=== PATIENT | female | born 1985 | race Caucasian/White ===

== ENCOUNTER 2022-12-19 18:08 | Emergency (ER) | payer OTHER, SELFPAY ==
--- NOTE | 2022-12-19 18:56 | ED.URI ---
HPI - URI/Sore Throat General Chief Complaint: Upper Respiratory Symptoms <MARGOT Victoria - Last Filed: 12/19/22 20:15> Stated Complaint: glands swollen, trouble swallowing <MARGOT Victoria - Last Filed: 12/19/22 20:15> Time Seen by Provider: 12/19/22 19:06 <MARGOT Victoria - Last Filed: 12/19/22 20:15> Source: patient <Davy Muñoz MD - Last Filed: 12/19/22 21:17> Mode of arrival: ambulatory <Davy Muñoz MD - Last Filed: 12/19/22 21:17> Limitations: no limitations <Davy Muñoz MD - Last Filed: 12/19/22 21:17> History of Present Illness HPI Narrative: 37 yo F w/no sig PMHx c/o fatigue, sore throat, rhinorrhea/congestion, cough, chest discomfort when coughing x2 days. tested for COVID at home, negative x2. No fever no chills unable to swallow any solids drinking p.o. fluids no shortness of breath no cough no other family member sick <Davy Muñoz MD - Last Filed: 12/19/22 21:17> Related Data Home Medications: Previous Rx's Medication Instructions Recorded cefuroxime axetil 500 mg tablet 500 mg PO BID #20 tabs 12/19/22 <MARGOT Victoria - Last Filed: 12/19/22 20:15> Allergies/Adverse Reactions: Allergies Allergy/AdvReac Type Severity Reaction Status Date / Time Erythromycin Allergy Unknown anaphylaxis Uncoded 12/19/22 18:57 MYOCINS Allergy Unknown ANAPHYLAXIS Uncoded 12/19/22 18:57 <MARGOT Victoria - Last Filed: 12/19/22 20:15> Review of Systems Review of Systems: Yes all other systems are reviewed and are negative <Davy Muñoz MD - Last Filed: 12/19/22 21:17> [facility] Social History Social History: Social History Advance Directives: No Advance Directives Information Provided: No <MARGOT Victoria - Last Filed: 12/19/22 20:15> Physical Exam Vital Signs: Vital Signs: Last Vital Signs Temp 97.6 F 12/19/22 18:57 Pulse 74 12/19/22 18:57 Resp 18 12/19/22 18:57 BP 148/88 H 12/19/22 18:57 Pulse Ox 98 12/19/22 18:57 O2 Del Method 12/19/22 18:57 BMI result Body Mass Index 36.0 <MARGOT Victoria - Last Filed: 12/19/22 20:15> Vital Signs: Last Vital Signs Temp 97.6 F 12/19/22 18:57 Pulse 74 12/19/22 18:57 Resp 18 12/19/22 18:57 BP 148/88 H 12/19/22 18:57 Pulse Ox 98 12/19/22 18:57 O2 Del Method 12/19/22 18:57 BMI result Body Mass Index 36.0 <Davy Muñoz MD - Last Filed: 12/19/22 21:17> Appearance: Alert. Oriented X3. No acute distress. ENT: Pharynx erythematous enlarged tonsils with exudate Neck: Normal inspection. Neck supple. CVS: Normal heart rate and rhythm. Pulses normal. Respiratory: No respiratory distress. Equal air entry bilateral, no wheezing/rales/rhonchi Abdomen: Soft and nontender. Bowel sounds are present, Skin: Skin warm and dry. Normal skin color. Normal skin turgor. Extremities: No lower extremity edema. No calf tenderness Neuro: Oriented X 3. <Davy Muñoz MD - Last Filed: 12/19/22 21:17> Course Course Course Narrative: RME--37 yo F w/no sig PMHx c/o fatigue, sore throat, rhinorrhea/congestion, cough, chest discomfort when coughing x2 days. tested for COVID at home, negative x2. +muffled voice with bilateral significant tonsillar swelling and exudates. No evidence of [employer]. talking in complete sentences COVID/FLU, Rapid strep, IV Decadron, IV Toradol ordered <MARGOT Victoria - Last Filed: 12/19/22 20:15> Medications Administered Discontinued Medications Generic Name Dose Route Start Last Admin Trade Name Freq PRN Reason Stop Dose Admin Dexamethasone Sodium Phosphate 10 mg 12/19/22 19:07 12/19/22 19:19 Dexamethasone Sod Phosphate 10 Mg/Ml Vial IVPUSH 12/19/22 19:08 10 mg ONCE ONE Administration Sodium Chloride 1,000 mls @ 999 mls/hr 12/19/22 19:09 12/19/22 19:20 Ns IV 12/19/22 20:09 999 mls/hr .Q1H1M ONE Administration Ceftriaxone Sodium 1 gm/ 50 mls @ 100 mls/hr 12/19/22 19:09 12/19/22 19:41 Sodium Chloride IV 12/19/22 19:38 100 mls/hr ONCE ONE Administration Ketorolac Tromethamine 30 mg 12/19/22 19:07 12/19/22 19:19 Ketorolac Tromethamine 30 Mg/Ml Vial IVPUSH 12/19/22 19:08 30 mg ONCE ONE Administration <MARGOT Victoria - Last Filed: 12/19/22 20:15> Medications Administered Discontinued Medications Generic Name Dose Route Start Last Admin Trade Name Nelsonq PRN Reason Stop Dose Admin Dexamethasone Sodium Phosphate 10 mg 12/19/22 19:07 12/19/22 19:19 Dexamethasone Sod Phosphate 10 Mg/Ml Vial IVPUSH 12/19/22 19:08 10 mg ONCE ONE Administration Sodium Chloride 1,000 mls @ 999 mls/hr 12/19/22 19:09 12/19/22 19:20 Ns IV 12/19/22 20:09 999 mls/hr .Q1H1M ONE Administration Ceftriaxone Sodium 1 gm/ 50 mls @ 100 mls/hr 12/19/22 19:09 12/19/22 19:41 Sodium Chloride IV 12/19/22 19:38 100 mls/hr ONCE ONE Administration Ketorolac Tromethamine 30 mg 12/19/22 19:07 12/19/22 19:19 Ketorolac Tromethamine 30 Mg/Ml Vial IVPUSH 12/19/22 19:08 30 mg ONCE ONE Administration <Davy Muñoz MD - Last Filed: 12/19/22 21:17> Medical Decision Making Medical Decision Making MDM Narrative: Patient's strep throat feeling much better now taking p.o. fluids discharge patient home on Ceftin <Davy Muñoz MD - Last Filed: 12/19/22 21:17> Lab Data MDM Lab Attestation statement: I reviewed the patient's lab results. <Davy Muñoz MD - Last Filed: 12/19/22 21:17> Labs: Lab Results 12/19/22 12/19/22 12/19/22 Range/Units 19:06 19:06 19:26 COVID-19 (DONA) Negative (Negative) COVID-19 Clin Com See Note Influenza Type A (AGUSTIN) Negative (Negative) Influenza Type B (AGUSTIN) Negative (Negative) Influenza A & B Note See Note S. pyogenes GrpA AGUSTIN Positive A (Negative) <MARGOT Victoria - Last Filed: 12/19/22 20:15> Lab Results 12/19/22 12/19/22 12/19/22 Range/Units 19:06 19:06 19:26 COVID-19 (DONA) Negative (Negative) COVID-19 Clin Com See Note Influenza Type A (AGUSTIN) Negative (Negative) Influenza Type B (AGUSTIN) Negative (Negative) Influenza A & B Note See Note S. pyogenes GrpA AGUSTIN Positive A (Negative) <Davy Muñoz MD - Last Filed: 12/19/22 21:17> Discharge Plan Discharge Clinical Impression: Strep pharyngitis <MARGOT Victoria - Last Filed: 12/19/22 20:15> Patient Disposition: Home, Self-Care <MARGOT Victoria - Last Filed: 12/19/22 20:15> Instructions: Strep Throat (ED) <MARGOT Victoria - Last Filed: 12/19/22 20:15> Additional Instructions: Drink plenty of fluids Antibiotic as prescribed Follow with PCP if not better or report to the ER Saline gargles <MARGOT Victoria - Last Filed: 12/19/22 20:15> Prescriptions: New cefuroxime axetil 500 mg tablet 500 mg PO BID Qty: 20 0RF <MARGOT Victoria - Last Filed: 12/19/22 20:15> Interventions: ED Discharge Assessment Last Done: 12/19/22 20:34 <MARGOT Victoria - Last Filed: 12/19/22 20:15> Discharge Date/Time: 12/19/22 20:36 <MARGOT Victoria - Last Filed: 12/19/22 20:15>
[2022-12-19 18:57] VITALS: BP 148/88; PULSE 74; RESP 18; TEMP 36.4; O2SAT 98; BMI 36.0
[2022-12-19] MEDS: Ketorolac Tromethamine 30 MG/ML VIAL IVPUSH (19:19)
[2022-12-19] MEDS: dexAMETHasone sod phosphate 10 MG/ML VIAL IVPUSH (19:19)
[2022-12-19] MEDS: 0.9 % Sodium Chloride 1,000 ML 999 ML IV (19:20)
[2022-12-19 19:34] LABS: COVID-19 Test Negative (Negative); IDNOW Serial# 08D9AD1C; IDNOW Serial# BCCEAD1C; Influenza A Negative (Negative); Influenza B2 Negative (Negative)
[2022-12-19 19:37] LABS: IDNOW Serial# 08D9AD1C; Strep A Nucleic Acid Positive (Negative)
[2022-12-19] MEDS: cefTRIAXone sodium 1 GM in 0.9 % Sodium Chloride 50 ML IV (19:41)
== END 2022-12-19 20:36 | disposition home or self-care (01) ==
PROVIDERS: Physician Assistant; Emergency Provider Internal Medicine
DX: J02.0 Streptococcal pharyngitis (principal); Z20.822 Contact with and (suspected) exposure to COVID-19; Z20.828 Contact with and (suspected) exposure to other viral communicable diseases; Z79.899 Other long term (current) drug therapy
CPT/HCPCS: 87502; 87635; 87651; 96374; 96375; 99283; 99284; J0696; J1100; J1885